=== PATIENT | female | born 1995 | race African-American/Black ===

== ENCOUNTER → 2017-07-18 | Outpatient (CLI) | payer OTHER ==
[~2017-07-18] MED LIST: EPIN0.3P15 IM; PRED20TA6 PO
--- NOTE | 2017-07-20 09:17 | RADIOLOGY IMAGING REPORT ---
FAC[place] [facility] [place] NAME: MIKE TELLO : [id number] MR: [id number] V: [id number] EXAM DATE: [id number] ORDERING PHYSICIAN: MONA GALVAN TECHNOLOGIST: Flores Kellogg EXAMINATION:TWO-DIMENSIONAL ECHOCARDIOGRAPH REASON:EXERTIONAL SOB 2D Measurements (normal values in centimeters) LV endLV endRV endVent.LV PostAorticLeftPercent DiastolicSystolicDiastolicSeptumWallRootAtriumShortening (3.5-5.7)(0.9-2.6)(0.6-1.1)(0.6-1.1)(2.0-3.7)(1.9-4.0)(25-35%) [id number]% STROKE VOLUME: 52ml ESTIMATED EJECTION FRACTION:69% PARASTERNAL LONG AXIS: Overall left ventricular function does appear to be normal. No wall motion abnormalities are noted. There is a mild prolapse of the posterior leaflet of the mitral valve. The aortic valve appears to open normally. Color examination of the valves reveals a trace of mitral insufficiency present. Color examination of the aortic valve was unremarkable. PARASTERNAL SHORT AXIS: Overall left ventricular systolic function & chamber sizes all appear to be normal. Aortic valve is trileaflet in configuration & appears to open normally. Also mild prolapse of the posterior leaflet of the tricuspid valve. Color examination of the tricuspid valve reveals a mild amount of tricuspid insufficiency. Color examination of the pulmonic valve was unremarkable. The aortic valve is trileaflet in configuration. APICAL FOUR AND TWO CHAMBER: Overall left ventricular systolic function appears to be normal. Aortic valve area & mitral valve area both measure within the normal ranges at 2.7 & 2.5cm2. The left atrial & right atrial volumes are measured within normal ranges at 20 & 16ml/m2. The tricuspid regurgitation Vmax was measured at 2.1m/sec. Trace of mitral insufficiency is also noted. SUBCOSTAL VIEW: No pericardial effusion was noted. No atrioseptal or ventriculoseptal defects were appreciated. The interim examination was suggestive of anterior leaflet of the mitral valve prolapse very minimal. Doppler examination of the mitral valve in diastole is normal. IVC is normal in size. OVERALL IMPRESSION: 1. Normal left ventricular ejection fraction of 69% with normal diastolic function. 2. There were normal chamber sizes. 3. A trileaflet aortic valve with no abnormalities. 4. Normal pulmonic valve. 5. Mild prolapse of the anterior leaflet of the mitral valve with only a trace of mitral insufficiency. No mitral stenosis was noted. 6. Trace to mild amount of tricuspid insufficiency with estimated right ventricular systolic pressures within normal ranges at 21mm Hg. This does include an estimated right atrial pressure of 3mm Hg which is within normal ranges. No other abnormalities were identified Dictated by: Cy Hayward M.D. on 07/18/2017 at 14:47 Transcribed by: JUAN PABLO on 07/19/2017 at 13:11 Approved by: Cy Hayward M.D. on 07/20/2017 at 9:16 [facility]
== END ==
LOC: US 01:05
PROVIDERS: ATTEND Emergency Medicine Sports Medicine
DX: I34.1 Nonrheumatic mitral (valve) prolapse (principal); I34.0 Nonrheumatic mitral (valve) insufficiency; I07.1 Rheumatic tricuspid insufficiency
CPT/HCPCS: 93306